=== PATIENT | female | born 1975 | race Caucasian/White ===

== ENCOUNTER 2016-07-11 18:39 | Emergency (ER) | payer OTHER, SELFPAY ==
[~2016-07-11 18:39] MED LIST: *UNABLE1; ACET500CAP PO; ACIPHEX PO; AMIT25 PO; B121000P IM; BEN25 PO; BUSPAR10 PO; BUSPAR15 M1 PO; BUSPIRONE PO; CLARIT10 PO; DEPO-ESTRAD5 MG/1 ML IM; DEPO-ESTRADIOL IM; DEPO-TESTOS200 MG/ML IM; DEPO-TESTOSTERONE IM; ENDOCET1 TAB PO; ESTRACE1 MG PO; EXCEDRIN TENSI1 EACH PO; FLAG500TAB PO; FLORASTOR250 MG PO; FOLIC ACID400 MC1 PO; IMITREX100 MG PO; IMITREX50 PO; LEVSINTAB PO; LEVSINTAB SL; LIBRAX PO; LOP25 PO; MCZ25 PO; METAMUCIL CAN7 OZ PO; MINIVELLE TD; MIRALAXPKT PO; NASONEX NAS; NUIRONCAP PO; OXCARBAZEPINE PO; PEPCID40 MG PO; PR25 PO; PRILOSEC40 MG PO; PROAIR HFA INH; PROVENTSOL INH; PROZAC PO; PROZAC40 MG PO; RANITIDINE300 MG PO; SUCR PO; TESTOST CYP100 MG/ML IM; TRILEP300 PO; ULTRAM50 PO; ZANTAC300 MG PO; ZOFRAN4 PO; ZOFRAN8 PO; ZYRTEC ALLGY10 MG PO
== END 2016-07-11 18:45 | disposition home or self-care (01) ==
LOC: ER 18:39
DX: J45.901 Unspecified asthma with (acute) exacerbation (principal); J06.9 Acute upper respiratory infection, unspecified; I10 Essential (primary) hypertension; Z86.73 Personal history of transient ischemic attack (TIA), and cerebral infarction without residual deficits; K21.9 Gastro-esophageal reflux disease without esophagitis; Z88.6 Allergy status to analgesic agent; Z88.5 Allergy status to narcotic agent; Z91.012 Allergy to eggs; Z91.018 Allergy to other foods; Z79.899 Other long term (current) drug therapy
CPT/HCPCS: 71020; 99285